=== PATIENT | female | born 1990 | race Caucasian/White ===

== ENCOUNTER 2016-10-23 04:15 | Emergency (ER) | payer OTHER ==
[~2016-10-23] VITALS: Ht 170.2 cm; Wt 119.0 kg
[2016-10-23 04:21] VITALS: TEMP 36.9; Ht 170.2 cm; Wt 119.0 kg
[2016-10-23] MEDS ORDERED: SODIUM CHLORIDE 0.9% 1000ML 1,000 ML IV STA (04:52)
[2016-10-23] MEDS ORDERED: MoRPHine SULFATE 4 MG/ML 1 ML CARP\\VIAL IV STA ×2 (04:52→05:38)
[2016-10-23] MEDS ORDERED: ONDANSETRON INJ 2 MG/ML 2 ML VIAL IV STA (04:52)
[2016-10-23 05:34] LABS: BASO % 0.1 %; BASO ABS # 0.01 K/uL (0-0.2); COMPLETE YES; EOS % 1.9 %; IG% 0.2 %; LYMPH % 32.1 %; LYMPH ABS # 2.98 K/uL (1.2-3.4); MEAN CELL VOLUME 90.7 fL (80-100); MEAN CORPUSCULAR HEMOGLOBIN 30.5 pg (25-34); MEAN CORPUSCULAR HGB CONC 33.7 g/dl (32-36); MEAN PLATELET VOLUME 10.3 fL (7.4-10.4); NEUT % 58.7 %; PLATELET COUNT 300 K/uL (130-400); RED BLOOD COUNT 4.19 M/uL (4.2-5.4); WHITE BLOOD COUNT 9.28 K/uL (4.8-10.8)
[2016-10-23] MEDS ORDERED: LISD30CA4 PO (05:34)
[2016-10-23] MEDS ORDERED: BCPILLS PO (05:34)
[2016-10-23] MEDS ORDERED: FLUO20CA35 PO (05:34)
[2016-10-23 05:38] LABS: URINE APPEARANCE CLEAR (CLEAR); URINE BILIRUBIN NEG (NEG); URINE COLOR YELLOW; URINE EPITHELIAL CELL AUTO >30 /lpf (0-5); URINE NITRITE NEG (NEG); URINE SPECIFIC GRAVITY 1.021 (1.000-1.030); UROBILINOGEN NEG (NEG); ZZUR CULT IF INDIC CLEAN CATCH NO
[2016-10-23 05:42] LABS: MANUAL MICROSCOPIC REQUIRED? NO; REVIEW REQ? NO
[2016-10-23 05:57] LABS: CALCIUM 8.6 mg/dl (8.5-10.1); CREATININE 0.77 mg/dl (0.60-1.20); POTASSIUM 4.2 mmol/L (3.5-5.1)
[2016-10-23 05:59] LABS: ALB/GLOB RATIO 0.7 (0.9-2)
[2016-10-23] MEDS ORDERED: CIPROFLOXACIN 500 MG TAB PO STA (07:53)
[2016-10-23] MEDS ORDERED: METRONIDAZOLE 250 MG TAB PO STA (07:53)
[2016-10-23] MEDS ORDERED: OXYC-57 PO (07:56)
[2016-10-23] MEDS ORDERED: CIPR-255 PO (07:56)
[2016-10-23] MEDS ORDERED: METR-163 PO (07:56)
--- NOTE | 2016-10-23 07:58 | EMERGENCY ROOM VISIT NOTE ---
History First contact with patient: 04:25 Chief Complaint: BACK PAIN Stated Complaint: BACK/LOWER RIGHT FLANK PAIN,2WKS AND WORSENING History of Present Illness The patient is a 26 year old female who presents to the Emergency Department by private vehicle for evaluation of her ongoing RIGHT flank pain. She reports that she's had symptoms for the past 2 weeks. She reports the pain is in her lower back with radiation down her leg. She denies any numbness or tingling sensation distally. She's had no loss of control bowel/bladder or saddle anesthesia. This evening, her symptoms worsened. She has tried over-the- counter medications without relief of symptoms. She rates her current discomfort as a 10/10. Patient denies any fevers, chills, headaches, dizziness , lightheadedness, chest pain, palpitations, shortness of breath, hematochezia, melena, hematuria, or dysuria. Review of Systems A complete 10-point Review of Systems was discussed with the patient, with pertinent positives and negatives listed in the History of Present Illness. All remaining Review of Systems questions can be considered negative unless otherwise specified. Social History Smoking Status: Current Every Day Smoker Drug Use: none Current/Historical Medications Scheduled Control Pills ( Control Pills), 1 TAB PO DAILY Ciprofloxacin Hcl (Cipro), 500 MG PO BID Fluoxetine (Prozac), 60 MG PO DAILY Lisdexamfetamine Dimesylate (Vyvanse), 30 MG PO DAILY Metronidazole (Flagyl), 500 MG PO TID Scheduled PRN Oxycodone/Acetaminophen 5MG/325MG (Percocet 5MG/325MG), 1-2 TABS PO Q4 PRN for Pain Allergies Coded Allergies: No Known Allergies (Verified , 10/23/16) Physical Exam Vital Signs Date Time Temp Pulse Resp B/P Pulse Ox O2 Delivery O2 Flow Rate FiO2 10/23/16 08:10 91 16 143/84 95 10/23/16 07:00 86 16 127/86 98 Room Air 10/23/16 05:49 77 16 133/86 96 Room Air 10/23/16 04:21 36.9 133 16 122/81 97 Room Air Pain Rating (0-10): 10 Physical Exam VITAL SIGNS - Vital signs and nursing notes were reviewed. GENERAL - 26-year-old female appearing her stated age who is in no acute distress. Communicates well with provider and answers questions appropriately. LUNGS - Chest wall symmetric without accessory muscle use, intercostals retractions, or central cyanosis. Normal vesicular breath sounds CTA B/L. No wheezes, rales, or rhonchi appreciated. CARDIAC - RRR with S1/S2. No murmur, rubs, or gallops appreciated. ABDOMEN - Abdominal contour obese and without pulsations or visible masses. BS normoactive all four quadrants. No tenderness to palpation appreciated throughout. No guarding. No Rebound Tenderness. Negative Rovsing's. Negative Alvarez's. No palpable masses, hepatosplenomegaly, or ascites noted. RIGHT lumbar paraspinal muscle tenderness to palpation. EXTREMITIES - No clubbing or peripheral cyanosis. No pretibial edema present. +3 /5 radial and dorsalis pedis pulses palpated throughout. Reflexes intact bilaterally. PSYCH - A&Ox3 and cooperates fully with examiner. Pt is very pleasant and interacts well with examiner. Medical Decision & Procedures ER Provider Diagnostic Interpretation: Radiological imaging and reports were reviewed by myself. Radiologist's Interpretation as follows: CT SCAN OF THE LUMBAR SPINE WITHOUT IV CONTRAST CLINICAL HISTORY: Right flank pain. COMPARISON STUDY: Abdominal CT performed concurrently on 10/23/2016. TECHNIQUE: CT scan of the lumbar spine is performed from the lower thoracic spine to the sacrum. Images reviewed in the axial, sagittal, and coronal planes. IV contrast was not administered for this examination. CT DOSE: 1785.53 mGy.cm FINDINGS: The skeletal structures are well mineralized. There is no evidence of fracture or malalignment. Vertebral body height and alignment are maintained throughout the lumbar spine. The transverse and spinous processes are intact. There is no evidence of spondylolysis. The intervertebral disc spaces are maintained. A small disc bulge is identified at L4-L5 and L5-S1. There may be minimal acquired compromise of the central canal at these levels. No large disc herniation is seen. The visualized sacrum and bony pelvis appear intact. The paraspinous soft tissues are within normal limits. Cholecystectomy clips are noted. IMPRESSION: There is no acute bony abnormality seen involving the lumbar spine. ABDOMEN AND PELVIS CT WITHOUT CONTRAST CT DOSE: HISTORY: RIGHT flank pain TECHNIQUE: Multiaxial CT images of the abdomen and pelvis were performed without the use of intravenous and oral contrast according to the standard department stone protocol. COMPARISON STUDY: None. FINDINGS: Trace right pleural effusion. Cholecystectomy. The unenhanced liver, spleen, adrenal glands, kidneys, and pancreas are unremarkable. No retroperitoneal lymphadenopathy. The bladder, uterus, bilateral ovaries are unremarkable. A few distal sigmoid diverticula. Moderate well-formed stool within the colon. Mild thickening within the terminal ileum consistent with an ileitis. Mild dilatation of the mid to distal ileum which is fluid-filled. This likely represents an associated low-grade partial small bowel obstruction. Visualized portion appendix are normal in caliber. IMPRESSION: 1. Mild thickening of the terminal ileum consistent with a nonspecific ileitis. This favors infectious or inflammatory process. 2. Mild dilatation of the mid to distal ileum which is also fluid-filled. This favors a low-grade partial small bowel obstruction due to the thickened terminal ileum. 3. Visualized portions of the appendix are unremarkable. 4. Cholecystectomy. Laboratory Results 10/23/16 05:05 Red Blood Count 4.19, Mean Corpuscular Volume 90.7, Mean Corpuscular Hemoglobin 30.5, Mean Corpuscular Hemoglobin Concent 33.7, Mean Platelet Volume 10.3, Neutrophils (%) (Auto) 58.7, Lymphocytes (%) (Auto) 32.1, Monocytes (%) (Auto) 7.0, Eosinophils (%) (Auto) 1.9, Basophils (%) (Auto) 0.1, Neutrophils # (Auto) 5.44, Lymphocytes # (Auto) 2.98, Monocytes # (Auto) 0.65, Eosinophils # (Auto) 0.18, Basophils # (Auto) 0.01 10/23/16 05:05 Test 10/23/16 05:05 10/23/16 05:15 White Blood Count 9.28 K/uL (4.8-10.8) Red Blood Count 4.19 M/uL (4.2-5.4) Hemoglobin 12.8 g/dL (12.0-16.0) Hematocrit 38.0 % (37-47) Mean Corpuscular Volume 90.7 fL (80-100) Mean Corpuscular Hemoglobin 30.5 pg (25-34) Mean Corpuscular Hemoglobin Concent 33.7 g/dl (32-36) Platelet Count 300 K/uL (130-400) Mean Platelet Volume 10.3 fL (7.4-10.4) Neutrophils (%) (Auto) 58.7 % Lymphocytes (%) (Auto) 32.1 % Monocytes (%) (Auto) 7.0 % Eosinophils (%) (Auto) 1.9 % Basophils (%) (Auto) 0.1 % Neutrophils # (Auto) 5.44 K/uL (1.4-6.5) Lymphocytes # (Auto) 2.98 K/uL (1.2-3.4) Monocytes # (Auto) 0.65 K/uL (0.11-0.59) Eosinophils # (Auto) 0.18 K/uL (0-0.5) Basophils # (Auto) 0.01 K/uL (0-0.2) RDW Standard Deviation 43.5 fL (36.4-46.3) RDW Coefficient of Variation 13.1 % (11.5-14.5) Immature Granulocyte % (Auto) 0.2 % Immature Granulocyte # (Auto) 0.02 K/uL (0.00-0.02) Anion Gap 5.0 mmol/L (3-11) Est Creatinine Clear Calc Drug Dose 150.4 ml/min Estimated GFR () 125.3 Estimated GFR (Non- 108.1 BUN/Creatinine Ratio 18.0 (10-20) Calcium Level 8.6 mg/dl (8.5-10.1) Magnesium Level 2.0 mg/dl (1.8-2.4) Total Bilirubin 0.3 mg/dl (0.2-1) Aspartate Amino Transf (AST/SGOT) 12 U/L (15-37) Alanine Aminotransferase (ALT/SGPT) 22 U/L (12-78) Alkaline Phosphatase 65 U/L (45-117) Total Protein 7.1 gm/dl (6.4-8.2) Albumin 3.0 gm/dl (3.4-5.0) Globulin 4.1 gm/dl (2.5-4.0) Albumin/Globulin Ratio 0.7 (0.9-2) Lipase 150 U/L (73-393) Urine Color YELLOW Urine Appearance CLEAR (CLEAR) Urine pH 6.0 (4.5-7.5) Urine Specific [place] 1.021 (1.000-1.030) Urine Protein NEG (NEG) Urine Glucose (UA) NEG (NEG) Urine Ketones NEG (NEG) Urine Occult Blood NEG (NEG) Urine Nitrite NEG (NEG) Urine Bilirubin NEG (NEG) Urine Urobilinogen NEG (NEG) Urine Leukocyte Esterase TRACE (NEG) Urine WBC (Auto) 1-5 /hpf (0-5) Urine RBC (Auto) 0-4 /hpf (0-4) Urine Hyaline Casts (Auto) 1-5 /lpf (0-5) Urine Epithelial Cells (Auto) >30 /lpf (0-5) Urine Bacteria (Auto) NEG (NEG) Medications Administered Medications (Trade) Dose Ordered Sig/Phil Route Start Time Stop Time Status Last Admin Dose Admin Sodium Chloride (Nss 1000ml) 1,000 ml @ 999 mls/hr Q1H1M STAT IV 10/23/16 04:52 10/23/16 05:52 DC 10/23/16 05:10 999 MLS/HR Morphine Sulfate (MoRPHine SULFATE INJ) 4 mg NOW STAT IV 10/23/16 04:52 10/23/16 04:54 DC 10/23/16 05:10 4 MG Ondansetron HCl (Zofran Inj) 4 mg NOW STAT IV 10/23/16 04:52 10/23/16 04:54 DC 10/23/16 05:09 4 MG Morphine Sulfate (MoRPHine SULFATE INJ) 4 mg NOW STAT IV 10/23/16 05:38 10/23/16 05:39 DC 10/23/16 05:49 4 MG Ciprofloxacin (Cipro Tab) 500 mg NOW STAT PO 10/23/16 07:53 10/23/16 07:54 DC 10/23/16 08:10 500 MG Metronidazole (Flagyl Tab) 500 mg NOW STAT PO 10/23/16 07:53 10/23/16 07:54 DC 10/23/16 08:10 500 MG ED Course Patient was seen and evaluated by myself. Labs were drawn, saline lock in place. Patient was hydrated with a 1000 mL normal saline bolus. The patient was treated with 4 mg morphine and [address] of the lumbar spine as well as abdomen and pelvis were ordered. Laboratory results demonstrate no acute leukocytosis, worrisome anemia, or bandemia. The patient has no significant electrolyte abnormalities. She was treated with an additional 4 mg morphine for her ongoing pain. Imaging results as above. Laboratory results and imaging studies were reviewed with the patient who acknowledges understanding. Patient was offered admission for pain control and management versus outpatient management. Patient was placed on Cipro and Flagyl after discussion with my attending. The patient was encouraged to follow- up with her primary care provider from today's visit. She was educated on worrisome symptoms for return visit to the emergency department. Patient discharged home afebrile and in good condition. Medical Decision Given the patient's presentation and stated complaints, I did elect to perform the above-mentioned workup. The patient presents to the emergency Department with ongoing symptoms of back pain. She is now develop radiation down the leg. She is had no worrisome radicular symptoms. Her reflexes are intact distally. Her pain is reproducible to the RIGHT-sided paraspinal lumbar distribution. She has no fever leukocytosis. Given her location of symptoms and pain, a CT of the lumbar spine was added in addition to a CT of the abdomen and pelvis. She was found to have a mild enteritis on CT. Structures of the lumbar spine were otherwise unremarkable. The patient's pain was adequately controlled the emergency department. She declines admission for continued pain control and evaluation. She was educated on worrisome symptoms for return visit to the emergency department. Patient discharged home afebrile and in good condition. In the evaluation and treatment of this patient, the following differential diagnoses were considered: Appendicitis, Diverticulitis, Diverticulosis, Colitis , Ischemic Colitis, Inflammatory Bowel Disease, Irritable Bowel Disease, Ovarian Torsion, Ectopic, Kidney Stone, Pyelonephritis, Hydronephrosis, Cholecystitis, Ascending Cholangitis, Choledocholithiasis, GERD. Impression Primary Impression: Flank pain Additional Impression: Enteritis Departure Information Dispostion Home / Self-Care Condition GOOD Prescriptions Oxycodone/Acetaminophen 5MG/325MG (PERCOCET 5MG/325MG) Tab 1-2 TABS PO Q4 Y for Pain, #20 TAB For Initial Treatment Prov: Jamal Segundo PA-C 10/23/16 Metronidazole (Flagyl) 500 Mg Tab 500 MG PO TID for 10 Days, #30 TAB Prov: Jamal Segundo PA-C 10/23/16 Ciprofloxacin Hcl (CIPRO) 500 Mg Tab 500 MG PO BID for 10 Days, #20 TAB Prov: Jamal Segundo PA-C 10/23/16 Referrals Adelia Ramos MD (PCP) Patient Instructions My [facility] Additional Instructions You have been treated in the Emergency Department your Flank Pain and Enteritis. You have been prescribed Percocet to be used for pain control. This is a narcotic medication. You cannot drive or consume alcohol while on this medicine. This medicine should only be used for pain that cannot be controlled with [id number] pain medicines. Please take the antibiotics as prescribed. Please follow-up with your primary care provider in the next 24-48 hours for repeat abdominal exam. For pain control, you can use the following [id number] medicines (if >12 yo): - Regular strength (325mg/tab) Tylenol (acetaminophen) 2 tabs every 4-6 hours as needed. Do not exceed 12 tablets in a 24 hour period. Avoid taking more than 4 grams (4000 mg) of Tylenol per day. This includes any other sources of acetaminophen you may take on a regular basis. - Regular strength (200 mg/tab) Advil (ibuprofen) 1-2 tabs every 4-6 hours as needed. Do not exceed a dose of 3200 mg per day. Drink plenty of water and stay well hydrated. Return to the emergency department if your symptoms persist despite treatment plan outlined above or if the following symptoms occur: increased fevers, chills , worsening nausea/vomiting, blood in your stool or urine. Problem Qualifiers
[2016-10-23 08:10] VITALS: BP 143/84; PULSE 91; O2SAT 95
--- NOTE | 2016-10-23 08:16 | DIAGNOSTIC IMAGING REPORT ---
ABDOMEN AND PELVIS CT WITHOUT CONTRAST CT DOSE: HISTORY: RIGHT flank pain TECHNIQUE: Multiaxial CT images of the abdomen and pelvis were performed without the use of intravenous and oral contrast according to the standard department stone protocol. COMPARISON STUDY: None. FINDINGS: Trace right pleural effusion. Cholecystectomy. The unenhanced liver, spleen, adrenal glands, kidneys, and pancreas are unremarkable. No retroperitoneal lymphadenopathy. The bladder, uterus, bilateral ovaries are unremarkable. A few distal sigmoid diverticula. Moderate well-formed stool within the colon. Mild thickening within the terminal ileum consistent with an ileitis. Mild dilatation of the mid to distal ileum which is fluid-filled. This likely represents an associated low-grade partial small bowel obstruction. Visualized portion appendix are normal in caliber. IMPRESSION: 1. Mild thickening of the terminal ileum consistent with a nonspecific ileitis. This favors infectious or inflammatory process. 2. Mild dilatation of the mid to distal ileum which is also fluid-filled. This favors a low-grade partial small bowel obstruction due to the thickened terminal ileum. 3. Visualized portions of the appendix are unremarkable. 4. Cholecystectomy. Electronically signed by: John Delgadillo M.D. 10/23/2016 8:14 AM Dictated Date/Time: 10/23/2016 8:08 AM
--- NOTE | 2016-10-23 08:26 | DIAGNOSTIC IMAGING REPORT ---
CT SCAN OF THE LUMBAR SPINE WITHOUT IV CONTRAST CLINICAL HISTORY: Right flank pain. COMPARISON STUDY: Abdominal CT performed concurrently on 10/23/2016. TECHNIQUE: CT scan of the lumbar spine is performed from the lower thoracic spine to the sacrum. Images reviewed in the axial, sagittal, and coronal planes. IV contrast was not administered for this examination. CT DOSE: 1785.53 mGy.cm FINDINGS: The skeletal structures are well mineralized. There is no evidence of fracture or malalignment. Vertebral body height and alignment are maintained throughout the lumbar spine. The transverse and spinous processes are intact. There is no evidence of spondylolysis. The intervertebral disc spaces are maintained. A small disc bulge is identified at L4-L5 and L5-S1. There may be minimal acquired compromise of the central canal at these levels. No large disc herniation is seen. The visualized sacrum and bony pelvis appear intact. The paraspinous soft tissues are within normal limits. Cholecystectomy clips are noted. IMPRESSION: There is no acute bony abnormality seen involving the lumbar spine. Dictated: 10/23/2016 7:32 AM Transcribed: 10/23/2016 8:25 AM [facility] Electronically signed by: Carlo Sheehan M.D. 10/23/2016 8:29 AM Dictated Date/Time: 10/23/2016 7:32 AM
== END 2016-10-23 08:13 | disposition home or self-care (01) ==
LOC: C.EDB 04:17 → C.EDA 08:13
DX: K52.9 Noninfective gastroenteritis and colitis, unspecified (principal); F17.210 Nicotine dependence, cigarettes, uncomplicated; Z79.3 Long term (current) use of hormonal contraceptives; Z79.899 Other long term (current) drug therapy

== ENCOUNTER → 2017-02-04 | Outpatient (CLI) | payer OTHER ==
[~2017-02-04] MED LIST: BCPILLS PO; CIPR-255 PO; FLUO20CA35 PO; LISD30CA4 PO; OXYC-57 PO
[2017-02-04 16:44] LABS: URINE APPEARANCE CLOUDY (CLEAR); URINE BILIRUBIN NEG (NEG); URINE COLOR YELLOW; URINE EPITHELIAL CELL AUTO >30 /lpf (0-5); URINE NITRITE NEG (NEG); URINE SPECIFIC GRAVITY 1.026 (1.000-1.030); UROBILINOGEN NEG (NEG)
[2017-02-04 16:45] LABS: MANUAL MICROSCOPIC REQUIRED? NO; REVIEW REQ? NO
== END | disposition home or self-care (01) ==
LOC: C.LABSPEC 16:06
PROVIDERS: ATTEND Obstetrics & Gynecology
DX: Z34.01 Encounter for supervision of normal first pregnancy, first trimester (principal)

== ENCOUNTER → 2017-02-11 | Outpatient (CLI) | payer OTHER ==
[2017-02-11 17:02] LABS: COMPLETE YES; EOS % 1.1 %; HEMATOCRIT 39.1 % (37-47); IG% 0.1 %; LYMPH % 34.1 %; LYMPH ABS # 2.39 K/uL (1.2-3.4); MEAN CELL VOLUME 90.5 fL (80-100); MEAN CORPUSCULAR HEMOGLOBIN 30.3 pg (25-34); MEAN CORPUSCULAR HGB CONC 33.5 g/dl (32-36); MEAN PLATELET VOLUME 10.8 fL (7.4-10.4); MONO % 8.3 %; NEUT % 56.4 %; PLATELET COUNT 252 K/uL (130-400); RED BLOOD COUNT 4.32 M/uL (4.2-5.4); WHITE BLOOD COUNT 7.01 K/uL (4.8-10.8)
== END | disposition home or self-care (01) ==
LOC: C.LAB 15:52
PROVIDERS: ATTEND Obstetrics & Gynecology
DX: O02.1 Missed abortion (principal)

== ENCOUNTER → 2017-06-08 | Outpatient (CLI) | payer OTHER ==
[~2017-06-08] MED LIST changes: -OXYC-57 PO
== END | disposition home or self-care (01) ==
LOC: C.LAB 13:20
PROVIDERS: ATTEND Obstetrics & Gynecology
DX: O09.299 Supervision of pregnancy with other poor reproductive or obstetric history, unspecified trimester (principal)

== ENCOUNTER → 2017-06-29 | Outpatient (CLI) | payer OTHER ==
[2017-06-29 14:57] LABS: URINE APPEARANCE CLEAR (CLEAR); URINE BILIRUBIN NEG (NEG); URINE COLOR YELLOW; URINE NITRITE NEG (NEG); URINE SPECIFIC GRAVITY 1.027 (1.000-1.030); UROBILINOGEN NEG (NEG)
[2017-06-29 15:05] LABS: MANUAL MICROSCOPIC REQUIRED? NO; REVIEW REQ? NO
== END | disposition home or self-care (01) ==
LOC: C.LAB1850 13:04
PROVIDERS: ATTEND Obstetrics & Gynecology
DX: O09.299 Supervision of pregnancy with other poor reproductive or obstetric history, unspecified trimester (principal)

== ENCOUNTER → 2017-07-02 | Outpatient (CLI) | payer OTHER ==
[2017-07-02 13:07] LABS: BASO % 0.2 %; BASO ABS # 0.02 K/uL (0-0.2); COMPLETE YES; EOS % 0.6 %; HEMATOCRIT 38.6 % (37-47); IG% 0.2 %; LYMPH % 21.7 %; LYMPH ABS # 1.74 K/uL (1.2-3.4); MEAN CELL VOLUME 88.7 fL (80-100); MEAN CORPUSCULAR HEMOGLOBIN 30.8 pg (25-34); MEAN CORPUSCULAR HGB CONC 34.7 g/dl (32-36); MONO % 7.5 %; NEUT % 69.8 %; PLATELET COUNT 244 K/uL (130-400); RED BLOOD COUNT 4.35 M/uL (4.2-5.4); WHITE BLOOD COUNT 8.01 K/uL (4.8-10.8)
[2017-07-07 07:05] LABS: CHLAMYDIA TRACH RNA*** NOT DETECTED (NOT DETECTED); GC (NEIS GONORRHOEAE)RNA** NOT DETECTED (NOT DETECTED)
== END | disposition home or self-care (01) ==
LOC: C.LAB1850 10:34
PROVIDERS: ATTEND Obstetrics & Gynecology
DX: O09.291 Supervision of pregnancy with other poor reproductive or obstetric history, first trimester (principal); Z3A.00 Weeks of gestation of pregnancy not specified

== ENCOUNTER → 2017-08-20 | Outpatient (CLI) | payer OTHER | END | disposition home or self-care (01) | LOC: C.LAB1850 10:58 | PROVIDERS: ATTEND Obstetrics & Gynecology | DX: O09.292 Supervision of pregnancy with other poor reproductive or obstetric history, second trimester (principal); Z3A.00 Weeks of gestation of pregnancy not specified ==

== ENCOUNTER → 2017-11-13 | Outpatient (CLI) | payer OTHER ==
[2017-11-13 14:40] LABS: HEMATOCRIT 33.9 % (37-47); HEMOGLOBIN 11.7 g/dL (12.0-16.0)
== END | disposition home or self-care (01) ==
LOC: C.LAB1850 13:15
PROVIDERS: ATTEND Obstetrics & Gynecology
DX: O09.293 Supervision of pregnancy with other poor reproductive or obstetric history, third trimester (principal); Z3A.00 Weeks of gestation of pregnancy not specified

== ENCOUNTER → 2017-11-20 | Outpatient (CLI) | payer OTHER | END | disposition home or self-care (01) | LOC: C.LAB1850 08:48 | PROVIDERS: ATTEND Obstetrics & Gynecology | DX: O28.1 Abnormal biochemical finding on antenatal screening of mother (principal); Z3A.00 Weeks of gestation of pregnancy not specified ==

== ENCOUNTER 2018-02-08 20:37 | Emergency (ER) | payer OTHER ==
[~2018-02-08] VITALS: Ht 167.6 cm; Wt 136.6 kg
[~2018-02-08 20:37] MED LIST changes: -BCPILLS PO; -CIPR-255 PO; -FLUO20CA35 PO; -LISD30CA4 PO; +OXYC-57 PO; +PRENTAB26 PO
[2018-02-08] MEDS ORDERED: IBUP-103 PO (21:35)
[2018-02-08] MEDS ORDERED: SODIUM CHLORIDE 0.9% 1000ML 1,000 ML IV STA (21:44)
[2018-02-08 22:31] VITALS: O2SAT 97; Ht 167.6 cm; Wt 136.6 kg
--- NOTE | 2018-02-08 23:02 | DIAGNOSTIC IMAGING REPORT ---
CHEST ONE VIEW PORTABLE HISTORY: cough/fever/recent emergent c section COMPARISON: Chest 07/02/2011. FINDINGS: The lungs are clear. Cardiac silhouette is normal in size. No pleural effusions. No pneumothorax. IMPRESSION: No acute process. Electronically signed by: John Delgadillo M.D. 02/08/2018 11:01 PM Dictated Date/Time: 02/08/2018 11:01 PM
[2018-02-08 23:23] LABS: BASO % 0.3 %; BASO ABS # 0.02 K/uL (0-0.2); EOS % 2.2 %; EOS ABS # 0.15 K/uL (0-0.5); HEMATOCRIT 30.5 % (37-47); HEMOGLOBIN 9.9 g/dL (12.0-16.0); IG# 0.02 K/uL (0.00-0.02); LYMPH % 33.1 %; LYMPH ABS # 2.29 K/uL (1.2-3.4); MEAN CELL VOLUME 90.5 fL (80-100); MEAN CORPUSCULAR HEMOGLOBIN 29.4 pg (25-34); MEAN CORPUSCULAR HGB CONC 32.5 g/dl (32-36); MEAN PLATELET VOLUME 9.5 fL (7.4-10.4); MONO % 9.6 %; MONO ABS # 0.66 K/uL (0.11-0.59); NEUT % 54.5 %; NEUT ABS # 3.77 K/uL (1.4-6.5); PLATELET COUNT 293 K/uL (130-400); RED CELL DISTRIBUTION WIDTH CV 13.6 % (11.5-14.5); WHITE BLOOD COUNT 6.91 K/uL (4.8-10.8)
[2018-02-08 23:33] LABS: PTT PATIENT 29.2 SECONDS (21.0-31.0)
[2018-02-08 23:44] LABS: ALBUMIN 2.5 gm/dl (3.4-5.0); CALCIUM 8.9 mg/dl (8.5-10.1); CREATININE 1.08 mg/dl (0.60-1.20); POTASSIUM 3.9 mmol/L (3.5-5.1); TOTAL PROTEIN 6.7 gm/dl (6.4-8.2)
[2018-02-08 23:57] VITALS: TEMP 37
[2018-02-09 01:05] VITALS: BP 130/81; PULSE 84; O2SAT 96
--- NOTE | 2018-02-09 05:17 | EMERGENCY ROOM VISIT NOTE ---
History First contact with patient: 21:28 Chief Complaint: FEVER Stated Complaint: 101 FEVER ON/OFF 7 DAYS,11 DAYS POST History of Present Illness The patient is a 28 year old female who presents to the Emergency Room with complaints of low-grade fever this been intermittent for the past week who had a 11 days ago. Patient has an occasional cough. Patient states the incisional site has greatly improved. Patient was emergently taken for C- section for demise. Patient denies chest pain, dyspnea, headache, neck stiffness, sore throat, earache, abdominal pain, purulent vaginal discharge, vaginal odor, heavy vaginal bleeding, urinary symptoms, back pain, breast problems, breast infection, leg pain or swelling. Patient states overall she feels like she is greatly improved since the surgery. Patient is only taking 2 Percocets a day and occasional Advil. The baby is breast-feeding without problems. Review of Systems An 10 system review of systems was completed with positives and pertinent negatives listed in the HPI. Past Medical/Surgical History Medical Problems: (1) with 39 completed weeks gestation (2) Premature rupture of membranes Social History Smoking Status: Never Smoker Drug Use: none Marital Status: Housing Status: lives with family Current/Historical Medications Scheduled Multivit/Min/Iron/Fol Ac/Pren ( Vitamin), 1 TAB PO DAILY Scheduled PRN Ibuprofen Tab (Advil), 400-600 MG PO Q6H PRN for Pain or Fever Oxycodone/Acetaminophen 5MG/325MG (Percocet 5MG/325MG), 1 TAB PO Q4H PRN for Pain Physical Exam Vital Signs Date Time Temp Pulse Resp B/P (MAP) Pulse Ox O2 Delivery O2 Flow Rate FiO2 02/09/18 01:05 84 16 130/81 96 02/08/18 23:57 37.0 88 16 139/86 96 Room Air 02/08/18 22:50 87 16 123/79 97 Room Air 02/08/18 22:31 97 Room Air 02/08/18 21:06 86 02/08/18 20:48 36.8 99 18 144/93 97 Room Air Physical Exam VITALS: Vitals are noted on the nurse's note and reviewed by myself. Vital signs stable. GENERAL: Pleasant female, in no acute distress, nondiaphoretic, well-developed well-nourished. SKIN: The skin was without rashes, erythema, edema, or bruising. There is no tenting of the skin. Capillary reflex less than 2 seconds. HEAD: Normocephalic atraumatic. EARS: External auditory canals clear, tympanic membranes pearly pandey without erythema or effusion bilaterally. EYES: Pupils equal round and reactive to light and accommodation. Conjunctivae without injection, sclerae without icterus. Extraocular movements intact. NOSE: Patent, turbinates without inflammation or discharge. No sinus tenderness. MOUTH: Mucous membranes moist. Pharynx without erythema or exudate. Uvula midline. Airway patent. Tongue does not deviate. NECK: Supple without nuchal rigidity. No lymphadenopathy. No thyromegaly. Cervical spine is nontender. No JVD. HEART: Regular rate and rhythm without murmurs gallops or rubs. LUNGS: Clear to auscultation bilaterally without wheezes, rales or rhonchi. No retractions or accessory muscle use. ABDOMEN: Positive bowel sounds x 4. Normal tympanic percussion. Soft, protuberant, obese, incisional site without signs of infection with nice healing ridge, nontender, without masses or organomegaly. Alvarez sign negative. No guarding or rebound tenderness. No CVA tenderness MUSCULOSKELETAL: No muscle atrophy, erythema, or edema noted. NEURO: Patient was alert and oriented to person place and time. Normal sensation to light and sharp touch. No focal neurological deficits. Medical Decision & Procedures Laboratory Results 02/08/18 23:10 Red Blood Count 3.37, Mean Corpuscular Volume 90.5, Mean Corpuscular Hemoglobin 29.4, Mean Corpuscular Hemoglobin Concent 32.5, Mean Platelet Volume 9.5, Neutrophils (%) (Auto) 54.5, Lymphocytes (%) (Auto) 33.1, Monocytes (%) (Auto) 9.6, Eosinophils (%) (Auto) 2.2, Basophils (%) (Auto) 0.3, Neutrophils # (Auto) 3.77, Lymphocytes # (Auto) 2.29, Monocytes # (Auto) 0.66, Eosinophils # (Auto) 0.15, Basophils # (Auto) 0.02 02/08/18 23:10 Test 02/08/18 22:46 02/08/18 23:10 02/08/18 23:12 Urine Color YELLOW Urine Appearance CLEAR (CLEAR) Urine pH 5.0 (4.5-7.5) Urine Specific [place] 1.018 (1.000-1.030) Urine Protein NEG (NEG) Urine Glucose (UA) NEG (NEG) Urine Ketones NEG (NEG) Urine Occult Blood NEG (NEG) Urine Nitrite NEG (NEG) Urine Bilirubin NEG (NEG) Urine Urobilinogen NEG (NEG) Urine Leukocyte Esterase TRACE (NEG) Urine WBC (Auto) 1-5 /hpf (0-5) Urine RBC (Auto) 0-4 /hpf (0-4) Urine Hyaline Casts (Auto) 1-5 /lpf (0-5) Urine Epithelial Cells (Auto) 10-20 /lpf (0-5) Urine Bacteria (Auto) NEG (NEG) White Blood Count 6.91 K/uL (4.8-10.8) Red Blood Count 3.37 M/uL (4.2-5.4) Hemoglobin 9.9 g/dL (12.0-16.0) Hematocrit 30.5 % (37-47) Mean Corpuscular Volume 90.5 fL (80-100) Mean Corpuscular Hemoglobin 29.4 pg (25-34) Mean Corpuscular Hemoglobin Concent 32.5 g/dl (32-36) Platelet Count 293 K/uL (130-400) Mean Platelet Volume 9.5 fL (7.4-10.4) Neutrophils (%) (Auto) 54.5 % Lymphocytes (%) (Auto) 33.1 % Monocytes (%) (Auto) 9.6 % Eosinophils (%) (Auto) 2.2 % Basophils (%) (Auto) 0.3 % Neutrophils # (Auto) 3.77 K/uL (1.4-6.5) Lymphocytes # (Auto) 2.29 K/uL (1.2-3.4) Monocytes # (Auto) 0.66 K/uL (0.11-0.59) Eosinophils # (Auto) 0.15 K/uL (0-0.5) Basophils # (Auto) 0.02 K/uL (0-0.2) RDW Standard Deviation 45.0 fL (36.4-46.3) RDW Coefficient of Variation 13.6 % (11.5-14.5) Immature Granulocyte % (Auto) 0.3 % Immature Granulocyte # (Auto) 0.02 K/uL (0.00-0.02) Prothrombin Time 10.2 SECONDS (9.0-12.0) Prothromb Time International Ratio 1.0 (0.9-1.1) Activated Partial Thromboplast Time 29.2 SECONDS (21.0-31.0) Partial Thromboplastin Ratio 1.1 Anion Gap 8.0 mmol/L (3-11) Est Creatinine Clear Calc Drug Dose 112.4 ml/min Estimated GFR () 82.0 Estimated GFR (Non- 70.8 BUN/Creatinine Ratio 18.9 (10-20) Calcium Level 8.9 mg/dl (8.5-10.1) Total Bilirubin 0.2 mg/dl (0.2-1) Aspartate Amino Transf (AST/SGOT) 13 U/L (15-37) Alanine Aminotransferase (ALT/SGPT) 19 U/L (12-78) Alkaline Phosphatase 71 U/L (45-117) Total Protein 6.7 gm/dl (6.4-8.2) Albumin 2.5 gm/dl (3.4-5.0) Globulin 4.2 gm/dl (2.5-4.0) Albumin/Globulin Ratio 0.6 (0.9-2) Bedside Lactic Acid Venous 0.44 mmol/L (0.90-1.70) Medications Administered Medications (Trade) Dose Ordered Sig/Phil Route Start Time Stop Time Status Last Admin Dose Admin Sodium Chloride 1,000 ml @ 999 mls/hr Q1H1M STAT IV 02/08/18 21:44 02/08/18 22:44 DC 02/08/18 22:50 999 MLS/HR ED Course Prior records/ancillary studies reviewed. Triage Nursing notes reviewed. Additional history obtained from family. The patient's history was concerning for fever. Differential diagnosis: Etiologies such as postsurgical infection, endometritis, viral syndrome, otitis , pharyngitis, pneumonia, influenza, meningitis, urinary tract infection, sepsis , bacteremia, as well as others were entertained. Physical examination: Patient is alert, interactive and well-appearing ER treatment provided: IV fluids On reassessment the patient felt better. Diagnostics interpreted by me: The labs revealed no worrisome leukocytosis or electrolyte abnormality. Negative urine. Negative lactic acid. This did not crossover but on the machine it was 0.4. Imaging studies: US PELVIS: Endometrial echocomplex measures 2 cm thick, including fluid and debris within the endometrial canal. Focal flow on color Doppler imaging within the endometrium anteriorly. Considerations include retained products of conception and endometritis. Ovaries are unremarkable. Radiologist: Juanito Cornejo MD Study ready at 23:44 and initial results transmitted at 00:08 [employer] CHEST ONE VIEW PORTABLE HISTORY: cough/fever/recent emergent c section COMPARISON: Chest 07/02/2011. FINDINGS: The lungs are clear. Cardiac silhouette is normal in size. No pleural effusions. No pneumothorax. IMPRESSION: No acute process. Electronically signed by: John Delgadillo M.D. Consultation: A consultation was placed with Dr. Devine, WAGON WASHER. The case was discussed and diagnostics were reviewed. She does not believe the patient is endometritis. Patient had no abdominal pain. No vaginal odor or discharge. She is well- appearing. She recommends that the patient be discharged with close outpatient follow-up. This appears to be consistent with reported fever with unclear etiology. Patient was in the ER for 4 hours and did not develop a fever. She has had no recent Tylenol or Motrin. She reports she had a low-grade temperature on and off this past week. I asked her to get a new thermometer and to take an oral temperature versus an ear temperature. Patient was advised to rest, stay well- hydrated and follow-up with OB in a few days or here in the ER sooner for high fevers, abdominal pain, lethargy, neck stiffness, worsening signs or symptoms or as needed. Repeat abdominal exam was benign. She did not have acute abdomen on exam. No signs of meningitis. She was neurovascularly and neurologically intact. She was afebrile and nontoxic.. By the evaluation outlined above emergent etiologies such as otitis, pharyngitis, pneumonia, meningitis, urinary tract infection, sepsis, bacteremia, as well as others were deemed relatively unlikely. The pt informed about the findings as listed above. All questions were answered and pleased with the treatment. Return instructions were outlined and the patient was discharged in stable condition. Referral: The patient was referred back to their WAGON WASHER and/or primary care physician for follow-up in 2 to 3 days for a recheck of the current condition. Case reviewed with my attending The chart was completed utilizing [employer] Speech voice recognition software. Grammatical errors, random word insertions, pronoun errors, and incomplete sentences are an occassional consequence of this system due to software limitations, ambient noise, and hardware issues. Any formal questions or concerns about the content, text, or information contained within the body of this dictation should be directly addressed to the physician classroom assistant for clarification. Medical Decision as above Medication Reconcilliation Current Medication List: was personally reviewed by me Blood Pressure Screening Patient's blood pressure: Normal blood pressure Impression Primary Impression: Fever Departure Information Dispostion Home / Self-Care Condition GOOD Referrals No Doctor, Assigned (PCP) Forms HOME CARE DOCUMENTATION FORM, IMPORTANT VISIT INFORMATION Patient Instructions Fever - [facility], [facility] Additional Instructions Acetaminophen(Tylenol) may be used for fever or pain. Use 1000mg every six hours as needed. Avoid using more than 3000mg in a 24 hour period. Rest and drink plenty of fluids. Controlling your fever with Tylenol and Ibuprofen as above will make you feel better. Wash your hands after nose blowing, sneezing, or coughing. Most germs are spread through contact, therefore improper hygiene may result in your close contacts and loved ones becoming ill just like you. Continue current medications. Return to the ER for severe headache, neck stiffness, chest pain, difficulty breathing, fevers, vomiting, worsening of your condition, or as needed. Follow up with your WAGON WASHER and/or primary physician this week for a recheck of your current condition. Call tomorrow morning for an appointment. Problem Qualifiers Primary Impression: Fever Fever type: unspecified Qualified Codes: R50.9 - Fever, unspecified
--- NOTE | 2018-02-09 06:54 | DIAGNOSTIC IMAGING REPORT ---
EXAMINATION: PELVIC ULTRASOUND (transabdominal only) CLINICAL HISTORY: Continued fever. Pain. History of . COMPARISON STUDY: FINDINGS: The uterus measured 12.2 x 7.4 x 10.2 cm.. The endometrial stripe measured 2 cm. There is a small amount of fluid within the endometrial canal.. The right ovary measured 18 x 20 x 28 mm. The left ovary measured 23 x 41 x 21 mm.. There is no ultrasonographic evidence of ovarian torsion. It should be noted that ovarian torsion can be present with normal Doppler ultrasonographic findings. There was no evidence of pathologic free pelvic fluid. IMPRESSION: 1. Mild nonspecific endometrial thickening. In the setting of a fever, endometritis cannot be excluded with certainty. There are no findings viewed as highly suspicious for retained products of conception. If further evaluation is desired, an endovaginal study would provide more detail. Electronically signed by: Kris Castañeda M.D. 02/09/2018 6:53 AM Dictated Date/Time: 02/09/2018 6:50 AM
== END 2018-02-09 01:05 | disposition home or self-care (01) ==
LOC: C.EDB 20:41
DX: R50.9 Fever, unspecified (principal)

== ENCOUNTER 2021-11-28 05:33 | Inpatient (IN) ==
--- NOTE | 2021-11-25 11:12 | Anesthesiology Consultation ---
Date of Service November 25, 2021 Assessment & Plan (1) Encounter for pre-operative examination: - ophthalmology 08/20/21: "...intraocular pressures...were normal...no papilledema or hemorrhage...I do not see an ocular origin..." - neuro 08/06/21 [place]: "...Fairly new onset, persistent headaches beginning this past May, in the context of patient's second ...brain MRI is unremarkable, no hydrocephalus, neoplasm, Chiari malformation, or parenchymal abnormality...intact neurological examination. Clinical suspicion for significant KNOT TIER process at this time is fairly low...Most likely, she has been experiencing chronic migraine in the context of her current . But again, I would like her to have an assessment with her metal expediter to exclude papilledema and the possibility of idiopathic intracranial hypertension..." - COVID screening: Per manager assessment on 11/25/2021: Travel screen negative, no known COVID-19 positive contacts or current COVID-19 related symptoms in past 2 weeks. Patient vaccinated. Surgeon arranging preop COVID testing, scheduled 11/26/2021. Awaiting results. Chart Review Chart Review: key entry operator initiated History Surgery Operation Date: 11/28/21 07:30 Proposed Procedures p Section (Delivery of Baby Through Abdominal Incision) - Ruby Corcoran MD Height/Weight Height: 5 ft 7 in Weight: 138.346 kg Allergies Allergy/AdvReac Type Severity Reaction Status Date / Time No Known Allergies Allergy Verified 11/25/21 10:29 Medications Home Medications Medication Instructions Recorded Confirmed Last Taken prenat.vits,kevin,[id number] 1 tab PO HS 04/17/21 11/25/21 Unknown sertraline 50 mg tablet 50 mg PO HS 11/25/21 11/25/21 Unknown Past Medical History Medical History (Updated 11/25/21 @ 11:11 by Traci Hunt PA-C) Depression History of chicken pox History of COVID-30 June 2020. mild symptoms - headache. with 39 completed weeks gestation Premature rupture of membranes Past Family History Family History Grandmother (Paternal) Heart disease Heart failure Ovarian cancer Grandfather (Paternal) Heart disease Heart failure Denies family history of Prostate cancer Myocardial infarction Breast cancer Colorectal cancer Past Surgical History Surgical History (Updated 11/25/21 @ 11:06 by Traci Hunt PA-C) H/O adenoidectomy History of tonsillectomy Hx of cholecystectomy S/P section x1, 01/31/2018. Social History Smoking Status: Former smoker tobacco type: cigarettes Smoking End Date: 2019 Hx Alcohol Use: No Alcohol type: beer, wine and hard liquor Hx Substance Use: No substance use type: does not use Testing Other Testing Brain MRI 08/01/21 No intracranial abnormality is identified.
--- NOTE | 2021-11-27 11:47 | History & Physical Report ---
Date of Service November 27, 2021 Assessment & Plan (1) Encounter for pre-operative examination: (2) Previous delivery affecting , antepartum: Plan: Discussed indications, risks, benefits, alternatives with risks including infection, bleeding, injury to adjacent structures (bowel, bladder, ureters, blood vessels, nerves, baby), possible need for blood transfusion and/or life saving hysterectomy, VTE. Consent reviewed in detail w/ pt and signed after all questions answered to her satisfaction. History of Present Illness Chief Complaint: Pre-op for CS Primary Care Provider: Alo Copeland, DO 31 y/o at 39 wga presents for preop for planned repeat CS tomorrow. 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 mild symptoms - headache. with 39 completed weeks gestation Premature rupture of membranes Surgical History H/O adenoidectomy History of tonsillectomy Hx of cholecystectomy S/P section x1, 01/31/2018. Family History Grandmother (Paternal) Heart disease Heart failure Ovarian cancer Grandfather (Paternal) Heart disease Heart failure Denies family history of Prostate cancer Myocardial infarction Breast cancer Colorectal cancer Social History Smoking Status: Former smoker Tobacco Type: Cigarettes Age Started Using Tobacco: 20; Age Quit Using Tobacco: 31; Second Hand Exposure: No; Hx Alcohol Use: No Hx Substance Use: No Preferred Language: Bahamian Communication Ability: Effective Visual Impairment: Limited Hearing Ability: Normal Orthopaedic Nurse Required: No Beliefs That Will Affect Care: None marital status: Single marital status details: mary ann Grant Bahamian [phone]) [phone] Current Living Situation: Family and Significant Other Current Living Situation Comment: lives with mary ann, son, no pets current occupational status: employed 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 [employer] How many Children do You have: 1 Feels Safe at Home: Yes Childhood Exposure to Second-Hand Smoke: No caffeine: Yes (coffee ) Dental Care, Regularly: Yes Physical Activity Frequency: 5-6 Times per Week Seatbelt Use: always Sunscreen Use: Yes Assistive Devices: Glasses Physical Exam Constitutional: WD/WN, vitals as above Respiratory: normal respiratory effort, lungs clear to auscultation Cardiovascular: RRR, no murmur, no edema Genitourinary: NST reactive Results & Data ([facility]) Laboratory Results OB Labs: Blood Type A Positive 04/24/21 Antibody Screen NEGATIVE 04/24/21 Hemoglobin 11.9 g/dL (12.0-16.0) L 09/11/21 A Hematocrit 35.5 % (37-47) L 09/11/21 Mean Corpuscular Volume 93.8 fL (80-100) 07/23/21 Platelet Count 271 K/uL (130-400) 07/23/21 Rubella IgG Antibody Immune (Immune) 04/24/21 Rapid Plasma Reagin Nonreactive (Nonreactive) 04/24/21 Hepatitis B Surface Antigen Neg (Neg) 04/24/21 HIV (1&2) Ab and P24 Ag, 4th Gener Neg (Neg) 04/24/21 Glucose 1 Hour 50 gm Load 158 mg/dl (70-130) H 09/11/21 OB Optional Labs: Chlamydia trachomatis RNA NOT DETECTED (NOT DETECTED) 04/24/21 Neisseria gonorrhoeae RNA NOT DETECTED (NOT DETECTED) 04/24/21 Thyroid Stimulating Hormone (TSH) 0.944 uIu/ml (0.300-4.500) 07/23/21 Labs Reviewed: declined afp--[facility] low risk panorama--[facility] cf/sma neg--[facility] GBS+ Diagnostic Findings 10/09 EFW 54%, R lat plac Coding Level of Care Code None Diagnoses Encounter for pre-operative examination Z01.818 Previous delivery affecting , antepartum O34.219
[2021-11-28] MEDS ORDERED: ceFAZolin 3,000 MG in DEXTROSE 5% 50 ML IV SCH (06:00)
[2021-11-28] MEDS ORDERED: CITRIC ACID/SODIUM CITRATE 15 ML UDC PO SCH (06:00)
[2021-11-28] MEDS ORDERED: LACTATED RINGER'S 1,000 ML IV SCH (06:00)
[2021-11-28 06:06] LABS: Basophils # (auto) 0.01 K/uL (0-0.2); Basophils % (auto) 0.1 %; Eosinophils # (auto) 0.06 K/uL (0-0.5); Eosinophils % (auto) 0.6 %; Hemoglobin 12.2 g/dL (12.0-16.0); Immature Granulocytes # (auto) 0.05 K/uL (0.00-0.02); Immature Granulocytes % (auto) 0.5 %; Lymphocytes # (auto) 2.81 K/uL (1.2-3.4); Lymphocytes % (auto) 30.3 %; Mean Corpuscular Hemoglobin 29.9 pg (25-34); Mean Corpuscular Volume 90.7 fL (80-100); Mean Platelet Volume 11.7 fL (7.4-10.4); Monocytes % (auto) 7.6 %; Neutrophils # (auto) 5.64 K/uL (1.4-6.5); Neutrophils % (auto) 60.9 %; Platelet Count 259 K/uL (130-400); RDW Coefficient of Variation 13.3 % (11.5-14.5); RDW Standard Deviation 43.5 fL (36.4-46.3); Red Blood Count 4.08 M/uL (4.2-5.4); White Blood Count 9.27 K/uL (4.8-10.8)
--- NOTE | 2021-11-28 07:28 | History & Physical Bridge Note ---
Date of Service November 28, 2021 History & Physical Bridge Note I have examined the patient, reviewed the History & Physical and in the interval since the performance of the History & Physical I have noted the following changes of clinical significance: no changes noted
[2021-11-28] MEDS ORDERED: MoRPHine SULFATE PF 1 MG/ML 10 ML AMP/VIAL ONE (07:29)
[2021-11-28] MEDS ORDERED: METOCLOPRAMIDE HCL 10 MG in SODIUM CHLORIDE 0.9% 50 ML IV PRN (07:34)
[2021-11-28] MEDS ORDERED: ePHEDrine sulfate 50 MG/ML AMP IV PRN (07:34)
[2021-11-28] MEDS ORDERED: NALOXONE HCL 0.08 MG in SYRINGE 1.8 ML IV PRN (07:34)
[2021-11-28] MEDS ORDERED: LACTATED RINGER'S 500 ML IV PRN (07:34)
[2021-11-28] MEDS ORDERED: diphenhydrAMINE 50 MG/ML VIAL IV PRN (07:34)
[2021-11-28] MEDS ORDERED: NALOXONE HCL 1 MG in SODIUM CHLORIDE 0.9% 1000ML 1,000 ML IV PRN (07:34)
[2021-11-28] MEDS ORDERED: NALOXONE HCL 0.4 MG/1 ML VIAL/CARP IV PRN (07:34)
[2021-11-28] MEDS ORDERED: PROMETHAZINE HCL 12.5 MG in SODIUM CHLORIDE 0.9% 50 ML IV PRN (07:34)
[2021-11-28] MEDS ORDERED: HYDROmorphone INJ 0.5 MG/0.5 ML SYR IV PRN (07:34)
[2021-11-28] MEDS ORDERED: MoRPHine SULFATE PF 1 MG/ML 10 ML AMP/VIAL INT SPINAL ONE (07:34)
[2021-11-28] MEDS ORDERED: KETOROLAC 30 MG/ML VIAL IV PRN (07:34)
[2021-11-28] MEDS ORDERED: DC INTRASPINAL MORPHINE SCH (07:45)
[2021-11-28] MEDS ORDERED: SODIUM CHLORIDE 0.9% 1000ML 1,000 ML IV SCH (07:45)
[2021-11-28] MEDS ORDERED: NO NARCOTICS OR SEDATIVES SCH (07:45)
[2021-11-28] MEDS ORDERED: OXYTOCIN 10 UNITS/ML 10ML VIAL ONE ×5 (08:45→08:46)
[2021-11-28] MEDS ORDERED: ePHEDrine sulfate 50 MG/ML AMP ONE (08:46)
[2021-11-28] MEDS ORDERED: PHENYLEPHRINE 100MCG/ML 5ML SYR ONE (08:46)
--- NOTE | 2021-11-28 08:47 | Post Operative Brief Note ---
PG Immediate Post Op with CF Date of Surgery November 28, 2021 Pre & Post Diagnosis Operation Date: 11/28/21 07:30 Pre-Op Diagnosis: 1. IUP at 39 Weeks and 1 day 2. History of x1 3. Desires Repeat Post-Op Diagnosis: Same I identified the patient and participated in the time-out.: Yes Procedure Operation Date: 11/28/21 07:30 Actual Procedures p Section in LD; Repeat Lower Uterine Transverse Section for the of a live boy at 0807.(Bilateral) - Ruby Corcoran MD Surgeon Ruby Corcoran MD Glass Selector MD Leigh Ann Estimated Blood Loss 600 Findings Consistent with Post-Op Diagnosis Normal appearing uterus, bilateral fallopian tubes, and ovaries. Viable male infant weighing 3311g with APGARs of 8 and 9 at 1 and 5 minutes, respectively. Fluids 1900cc crystalloid, 200cc urine output by alaniz catheter Specimens Specimen Description: 1. Cord blood obtained 2. Placenta; hold Drains Alaniz Catheter (draining clear urine) Anesthesia Type Spinal Complications none Disposition Accompanied Patient To Recovery: Yes Disposition: L&D
--- NOTE | 2021-11-28 08:53 | Operative Report ---
PG Post Operative Report Pre & Post Diagnosis Operation Date: 11/28/21 07:30 Pre-Op Diagnosis: 1. IUP at 39 Weeks and 1 day 2. History of x1 3. Desires Repeat Post-Op Diagnosis: Same I identified the patient and participated in the time-out.: Yes Procedure Operation Date: 11/28/21 07:30 Actual Procedures p Section in LD; Repeat Low Transverse Section for the of a live boy at 0807.(Bilateral) - Ruby Corcoran MD Surgeon Ruby Corcoran MD Apartment Maintenance Worker MD Leigh Ann Estimated Blood Loss 600 Findings Consistent with Post-Op Diagnosis Normal appearing uterus, bilateral fallopian tubes, and ovaries. Viable male infant weighing 3311g with APGARs of 8 and 9 at 1 and 5 minutes, respectively. Fluids 1900cc crystalloid, 200cc urine output by alaniz catheter Specimens 1. Cord blood obtained 2. Placenta; hold Drains Alaniz draining clear urine Anesthesia Type Spinal Complications none Disposition Accompanied Patient To Recovery: Yes Disposition: L&D Indications 31 y/o at 39 1/7 wga presented for planned repeat , declined tubal ligation. Description of Procedure The patient was taken to the operating room after consents were ensured. The patient was properly identified. Spinal anesthesia was obtained without difficulty. The patient was placed in a dorsal supine position with left lateral tilt, then prepped and draped in normal sterile fashion. Surgical time out was performed. Antibiotics were given for prophylaxis. Anesthesia was tested to ensure adequate surgical levels. Pfannenstiel skin incision was performed and carried down to the underlying fascia with a knife. The fascia was then nicked in the midline and extended laterally with pickups and Vilchis scissors. Superior portion of the fascia was grasped with Kochers x2 and elevated off the underlying rectus muscles using blunt dissection. Inferior portion of the fascia was then grasped with Manoj clamps x2 and also elevated off the underlying muscles with blunt dissection. Midline was identified. The peritoneum was then entered sharply and extended to provide adequate room for delivery of baby. A hand was inserted into the abdomen, uterus was noted to be clear of adhesions. Bladder blade was inserted, bladder flap was created in the usual fashion. A low transverse uterine incision was made in the uterus and extended bluntly in a superior to inferior fashion. Amniotomy was made with clear fluid at the time of rupture. head was grasped and elevated through the hysterotomy in an atraumatic fashion. The baby delivered in ROXIE position, nuchal cord x 1 noted and reduced. Remainder of the body delivered without incident. Nose and mouth were bulb suctioned on the surgical field. The cord was double clamped and cut, baby was handed off to awaiting pediatrics staff. Cord segment and blood were obtained. Placenta was then expressed from the uterus. The uterus was exteriorized. Several passes were made inside the uterus to remove the remaining membranes. Attention was then turned to the hysterotomy, which was then closed with a running locked suture of 0 Vicryl on a CTX needle. An imbricating layer was then performed using 0-Monocryl. An area of the suture line on the left side was noted to have bleeding and made hemostatic with a figure of eight stitch. There was then noted to be good hemostasis. The posterior cul-de-sac was then inspected and cleaned of clot and debris. The hysterotomy was again inspected and noted to be hemostatic. The uterus was returned to the abdomen. The right and left pericolic gutters were cleaned of all clot and debris. The hysterotomy was again noted to be hemostatic. Space of Retzius was noted to be hemostatic. The fascia was then closed with a running suture of 0 Vicryl on a CT1 needle. Subcutaneous tissue was copiously irrigated and noted to be hemostatic. Subcutaneous tissue was re-approximated using 2-0 plain gut. The skin was then closed with a running suture of 3-0 Monocryl in a subcuticular fashion. At termination of the procedure, the fundal pressure was applied and a moderate amount of lochia was expressed. Pressure dressing was applied to the patient. She tolerated the procedure well. All sponge, needle, instrument counts were correct x 2. I attest to the content of the Intraoperative Record and any orders documented therein. Any exceptions are noted below. OB Procedure Charges 57203
[2021-11-28] MEDS ORDERED: HYDROCORTISONE ACETATE 25 MG SUPP PR PRN (09:06)
[2021-11-28] MEDS ORDERED: MAGNESIUM HYDROXIDE SUSP 30 ML UDC PO PRN (09:06)
[2021-11-28] MEDS ORDERED: SENNA 8.6 MG TAB PO PRN (09:06)
[2021-11-28] MEDS ORDERED: BENZOCAINE 20% AER SPR 82.5 GM CAN EXT PRN (09:06)
[2021-11-28] MEDS ORDERED: DIPHTHERIA/TETANUS/PERTUSSIS 0.5 ML SYR/VIAL IM ONE (09:06)
[2021-11-28] MEDS ORDERED: OXYTOCIN 20 UNITS in LACTATED RINGER'S 1,000 ML IV SCH (09:30)
--- NOTE | 2021-11-28 09:53 | Anesthesiology Progress Note ---
Date of Service November 28, 2021 Anesthesia Post Procedure Vital Signs Vital Signs: Temp Pulse Resp BP Pulse Ox 11/28/21 09:50 66 118/55 L 100 11/28/21 09:45 70 99 11/28/21 09:40 70 124/56 L 99 11/28/21 09:39 20 11/28/21 09:35 67 97 11/28/21 09:30 69 122/57 L 98 11/28/21 09:29 20 11/28/21 09:25 82 97 11/28/21 09:20 71 20 119/59 L 98 11/28/21 09:15 69 97 11/28/21 09:10 70 20 136/66 97 11/28/21 09:05 79 97 11/28/21 09:02 77 113/78 11/28/21 09:00 68 20 96 11/28/21 08:58 72 94 11/28/21 08:55 65 96 11/28/21 08:52 71 94 11/28/21 08:50 36.6 C 66 20 120/57 L 96 11/28/21 07:32 78 95 11/28/21 07:27 78 95 11/28/21 07:22 75 97 11/28/21 07:17 72 96 11/28/21 07:12 72 98 11/28/21 07:07 72 94 11/28/21 07:02 36.6 C 73 20 94 11/28/21 07:01 71 129/73 11/28/21 06:57 67 96 11/28/21 06:54 73 94 11/28/21 06:52 69 95 11/28/21 06:47 68 94 11/28/21 05:55 36.8 C 74 18 149/80 H 11/28/21 05:50 36.8 C 18 Transfer of Care Handoff Completed per policy Notes Mental Status: alert / awake / arousable and participated in evaluation Patient Amnestic to Procedure: Yes Nausea / Vomiting: adequately controlled Pain: adequately controlled Airway Patency, RR, SpO2: stable & adequate BP & HR: stable & adequate Hydration State: stable & adequate Neuraxial Anesthesia: was administered and sensory block is resolving Anesthetic Complications: no major complications apparent
[2021-11-28] MEDS: SIMETHICONE 80 MG CHEW PO SCH ×3 (13:00→20:22)
[2021-11-28] MEDS: NALBUPHINE HCL INJ 10 MG/ML AMP IV PRN ×2 (16:14→20:30)
[2021-11-28] MEDS: LACTATED RINGER'S 1,000 ML IV SCH (19:10)
[2021-11-28] MEDS: DOCUSATE SODIUM 100 MG CAP PO SCH (20:22)
[2021-11-28] MEDS: SERTRALINE HCL 50 MG TABLET PO SCH (20:22)
[2021-11-29] MEDS: LACTATED RINGER'S 1,000 ML IV SCH (01:18)
[2021-11-29] MEDS ORDERED: diphenhydrAMINE 50 MG/ML VIAL IV PRN (01:34)
[2021-11-29] MEDS ORDERED: diphenhydrAMINE Capsule 25 MG CAP PO PRN (01:34)
[2021-11-29] MEDS ORDERED: KETOROLAC 30 MG/ML VIAL IV PRN (01:34)
[2021-11-29] MEDS ORDERED: ONDANSETRON INJ 2 MG/ML 2 ML VIAL IV PRN (01:34)
[2021-11-29] MEDS ORDERED: PROMETHAZINE HCL 25 MG in SODIUM CHLORIDE 0.9% 50 ML IV PRN (01:34)
--- NOTE | 2021-11-29 06:12 | Obstetrical Progress Note ---
Date of Service <Koby Hale DO - Last Filed: 11/29/21 06:48> November 29, 2021 Assessment & Plan <Koby Hale DO - Last Filed: 11/29/21 06:48> (1) Encounter for care and examination after delivery: 31 yo post op day 1 from , doing well. -Continue routine post care. -vital signs reviewed and WNL. (Tmax 37) -Blood type A+, GBS negative, Rubella Immune -Encourage ambulation, monitor and control pain with Motrin, tylenol PRN, resume regular diet, monitor lochia. -Monitor for voiding trial, bladder scan PRN. -encourage breast feeding. <Ruby Corcoran MD - Last Filed: 11/29/21 07:01> (1) Encounter for care and examination after delivery: Subjective <Koby Hale - Last Filed: 11/29/21 06:48> Ambulation: ambulating normally Passing Gas:: Yes Diet Tolerance:: regular diet Lochia:: Small Feeding Type:: breast feeding Current Pain Level(1-10): 2 Gomez out this AM at ~1:30AM according to patient. Has not voided yet. Review of Systems Denies fever, chills, sweats Denies shortness of breath, difficulty breathing, chest pain, palpitations, chest pressure. Denies breast pain. Denies dysuria. Denies headache or changes in vision Physical Exam <Koby Hale DO - Last Filed: 11/29/21 06:48> General: Alert, oriented. No acute distress. Cardiac: Regular rate and rhythm, no murmurs/rubs/gallops. Respiratory: Clear to auscultation bilaterally a/p, no wheezes/rales/rhonchi. No increased work of breathing. Symmetrical chest rise. No respiratory distress. Abdomen: Soft, nontender, nondistended. Bowel sounds present. Uterus: Uterine fundus firm, palpable 1 cm below umbilicus. Surgical dressing with small 1-2cm area of light brown, dry discoloration; dressing dry throughout. Lower Extremities: No lower extremity edema or swelling. No deep calf pain. Fam's negative bilaterally Results & Data ([facility]) <Koby Hale DO - Last Filed: 11/29/21 06:48> Vital Signs (Past 12 Hours) Vital Signs Temp Pulse Pulse Resp BP BP Pulse Ox 11/29/21 03:08 36.6 C 70 16 108/73 95 11/29/21 01:03 16 97 11/29/21 00:01 16 95 11/28/21 23:19 36.8 C 77 16 112/75 97 11/28/21 22:09 16 98 11/28/21 21:06 16 98 11/28/21 20:10 36.8 C 72 16 106/71 95 11/28/21 19:00 18 96 <Ruby Corcoran MD - Last Filed: 11/29/21 07:01> Co-Signing Physician Notes Resident Physician Supervision Note: I interviewed and examined the patient. Discussed with Dr. Hale and agree with findings and plan as documented in the note. Any exceptions or clarifications are listed here: POD1 s/p rLTCS, doing well. Gomez out, DTV. VSS, exam benign and wnl, dressing c/d/i. Continue rout pp care, to remove dressing in shower Documented By: Ruby Corcoran MD Resident Activity Tracking <Koby Hale DO - Last Filed: 11/29/21 06:48> Resident Involvement: Resident Care Provided Care Provided: OB Delivery
[2021-11-29 06:33] LABS: Eosinophils % (auto) 1.4 %; Hematocrit (blood only) 31.2 % (37-47); Hemoglobin 10.3 g/dL (12.0-16.0); Immature Granulocytes # (auto) 0.02 K/uL (0.00-0.02); Immature Granulocytes % (auto) 0.3 %; Lymphocytes # (auto) 1.71 K/uL (1.2-3.4); Lymphocytes % (auto) 23.4 %; Mean Corpuscular Hemoglobin 30.2 pg (25-34); Mean Corpuscular Volume 91.5 fL (80-100); Mean Platelet Volume 11.3 fL (7.4-10.4); Monocytes # (auto) 0.56 K/uL (0.11-0.59); Monocytes % (auto) 7.7 %; Neutrophils # (auto) 4.92 K/uL (1.4-6.5); Neutrophils % (auto) 67.2 %; Platelet Count 188 K/uL (130-400); RDW Coefficient of Variation 13.6 % (11.5-14.5); RDW Standard Deviation 44.7 fL (36.4-46.3); Red Blood Count 3.41 M/uL (4.2-5.4); White Blood Count 7.31 K/uL (4.8-10.8)
[2021-11-29] MEDS: PRENATAL VITAMIN 1 TAB PO SCH (07:38)
[2021-11-29] MEDS: SIMETHICONE 80 MG CHEW PO SCH ×4 (07:38→20:29)
[2021-11-29] MEDS: DOCUSATE SODIUM 100 MG CAP PO SCH ×2 (07:39→20:29)
[2021-11-29] MEDS: IBUPROFEN 600 MG TAB PO PRN ×4 (07:39→22:55)
[2021-11-29] MEDS: FERROUS SULFATE 325 MG TAB PO SCH (07:39)
[2021-11-29] MEDS: oxyCODONE/ACETAMINOPHEN 5mg/325mg TAB PO PRN ×4 (07:39→22:55)
[2021-11-29] MEDS ORDERED: bisacodyL 5 MG TABEC PO SCH (20:00)
[2021-11-29] MEDS: SERTRALINE HCL 50 MG TABLET PO SCH (20:28)
[2021-11-30] MEDS: oxyCODONE/ACETAMINOPHEN 5mg/325mg TAB PO PRN ×3 (03:23→16:01)
[2021-11-30] MEDS: IBUPROFEN 600 MG TAB PO PRN ×3 (03:24→16:01)
[2021-11-30 07:00] LABS: Hematocrit (blood only) 29.2 % (37-47); Hemoglobin 9.7 g/dL (12.0-16.0)
--- NOTE | 2021-11-30 07:01 | Obstetrical Progress Note ---
Date of Service November 30, 2021 Assessment & Plan (1) Encounter for care and examination after delivery: POD#2 doing well. Incision CDI. Pain controlled. Ambulating, , eating/drinking ok. No concerns. DC home. Reviewed instructions. Followup 6wPP Subjective Ambulation: ambulating normally Voiding: no voiding problems Diet Tolerance:: regular diet Lochia:: Moderate Review of Systems All systems reviewed & are unremarkable except as noted in HPI & below Physical Exam Constitutional WD/WN, vitals as above no acute distress Respiratory normal respiratory effort Cardiovascular Rate/Rhythm: regular rate and regular rhythm Gastrointestinal (Abdomen) Inspection/Auscultation: abdomen normal to inspection; abdomen not distended Percussion/Palpation: abdomen soft Genitourinary OB Exam Abdomen: + fundal height Fundus: + firm; not tender Results & Data ([facility]) Vital Signs (Past 12 Hours) Vital Signs Temp Pulse Resp BP Pulse Ox 11/29/21 22:45 36.7 C 79 16 102/72 96 11/29/21 20:20 36.6 C 83 16 115/77 94
[2021-11-30] MEDS: FERROUS SULFATE 325 MG TAB PO SCH (08:17)
[2021-11-30] MEDS: DOCUSATE SODIUM 100 MG CAP PO SCH ×2 (08:17→20:58)
[2021-11-30] MEDS: PRENATAL VITAMIN 1 TAB PO SCH (08:17)
[2021-11-30] MEDS: SIMETHICONE 80 MG CHEW PO SCH ×4 (08:17→20:58)
[2021-11-30] MEDS ORDERED: bisacodyL 10 MG SUPP PR PRN (08:43)
[2021-11-30] MEDS: SERTRALINE HCL 50 MG TABLET PO SCH (20:58)
[2021-12-01] MEDS: oxyCODONE/ACETAMINOPHEN 5mg/325mg TAB PO PRN ×2 (00:06→06:26)
[2021-12-01] MEDS: IBUPROFEN 600 MG TAB PO PRN ×2 (00:06→06:26)
--- NOTE | 2021-12-01 07:26 | Obstetrical Progress Note ---
Date of Service December 01, 2021 Assessment & Plan (1) Encounter for care and examination after delivery: Of day #2 patient is ambulating well tolerating an oral diet her pain is well controlled her bleeding is minimal Her incision is clean dry and intact extremity exam negative patient meets criteria for discharge and wishes home today Subjective Ambulation: ambulating normally Voiding: no voiding problems Passing Gas:: Yes Diet Tolerance:: regular diet Lochia:: Small Results & Data ([facility]) Vital Signs (Past 12 Hours) Vital Signs Temp Pulse Resp BP 12/01/21 00:00 98.1 F 76 16 110/72
[2021-12-01] MEDS: DOCUSATE SODIUM 100 MG CAP PO SCH (08:38)
[2021-12-01] MEDS: SIMETHICONE 80 MG CHEW PO SCH (08:38)
[2021-12-01] MEDS: FERROUS SULFATE 325 MG TAB PO SCH (08:38)
[2021-12-01] MEDS: PRENATAL VITAMIN 1 TAB PO SCH (08:38)
--- NOTE | 2021-12-03 07:56 | Discharge Summary ---
Date of Service December 03, 2021 Admission HPI Per Admitting Provider 31 y/o at 39 wga presents for preop for planned repeat CS tomorrow. 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 SAB G2 2018 pCS, NRFHT G3 current q26d cycles 11/2020 neg cyto denies hx STIs Admission Exam (Per Admitting) Constitutional WD/WN, vitals as above Respiratory normal respiratory effort, lungs clear to auscultation Cardiovascular RRR, no murmur, no edema Discharge Data Consultations 11/28/21 05:39 Consult Anesthesiology Stat Procedures Performed Operation Date: 11/28/21 07:30 Actual Procedures p Section in LD; Repeat Lower Uterine Transverse Section for the of a live boy infant at 0807.(Bilateral) - Ruby Corcoran MD Hospital Course (1) Encounter for care and examination after delivery: 31 y/o at 39 1/7 wga presented for planned repeat , see operative report for details. Postoperative course was uncomplicated and she was discharged home on POD3 Coding Level of Care Code None Diagnoses Encounter for care and examination after delivery Z39.2
== END 2021-12-01 11:08 | disposition home or self-care (01) | DRG 788 ==
LOC: 4S1 05:33 → EDSTATUS 07:30 → 4E2 12:57